=== PATIENT | male | born 1990 | race Caucasian/White ===

== ENCOUNTER 2017-10-07 21:13 | Emergency (ER) | payer OTHER ==
[2017-10-07 23:01] LABS: Urine Blood TRACE (NEG); Urine Glucose NEGATIVE (NEG); Urine Protein TRACE (NEG); Urine Specific Gravity 1.025 (1.005-1.030)
[2017-10-07] MEDS ORDERED: KETOROLAC 30 MG/ML INJ ONE (23:18)
--- NOTE | 2017-10-08 00:32 | EDPHYS ---
Physician Documentation [facility] Name: Robel Arauz Age: 27 yrs Sex: Male : 1990 Arrival Date: 10/07/2017 Time: 21:14 Bed 14 Private MD: Priscilla Frye ED Physician Ray Gutiérrez HPI: 10/08 03:43 This 27 yrs old Male presents to ER via Ambulatory with complaints of Low tw4 Back Pain. 03:43 The patient presents with pain that is acute. The patient presents with pain that is tw4 acute, with no known mechanism of injury. The symptoms are located in the left low back and right low back. The pain does not radiate. The problem was sustained from twisting. Onset: The symptoms/episode began/occurred today. Modifying factors: The patient symptoms are alleviated by rest, the patient symptoms are aggravated by movement. Associated signs and symptoms: The patient has no apparent associated signs or symptoms. The patient has not experienced similar symptoms in the past. Historical: - Allergies: 10/07 22:11 No Known Allergies; fc - Home Meds: 22:11 Cymbalta 60 mg oral cpDR 1 cap once daily [Active]; fc - PMHx: 22:11 Depression; fc - PSHx: 22:11 Appendectomy; fc - Immunization history:: Last tetanus immunization: unknown. - Social history:: Smoking status: Patient/guardian denies using tobacco, Patient/guardian denies using alcohol, street drugs. - Ebola Screening: : Patient negative for fever greater than or equal to 101.5 degrees Fahrenheit, and additional compatible Ebola Virus Disease symptoms Patient denies exposure to infectious person Patient denies travel to an Ebola-affected area in the 21 days before illness onset. ROS: 10/08 03:43 Constitutional: Negative for fever, chills, and weight loss, Cardiovascular: Negative tw4 for chest pain, palpitations, and edema, Respiratory: Negative for shortness of breath, cough, wheezing, and pleuritic chest pain, Abdomen/GI: Negative for abdominal pain, nausea, vomiting, diarrhea, and constipation. Back: Positive for pain with movement, Negative for injury or acute deformity, decreased range of motion, radiated pain. Exam: 03:43 Constitutional: This is a well developed, well nourished patient who is awake, alert, tw4 and in no acute distress. Chest/axilla: Normal chest wall appearance and motion. Nontender with no deformity. No lesions are appreciated. Cardiovascular: Regular rate and rhythm with a normal S1 and S2. No gallops, murmurs, or rubs. Normal PMI, no JVD. No pulse deficits. Respiratory: Lungs have equal breath sounds bilaterally, clear to auscultation and percussion. No rales, rhonchi or wheezes noted. No increased work of breathing, no retractions or nasal flaring. Abdomen/GI: Soft, non-tender, with normal bowel sounds. No distension or tympany. No guarding or rebound. No evidence of tenderness throughout. 03:43 Back: pain, that is mild, of the right mid back and right low back. Vital Signs: 10/07 22:11 BP 117 / 68; Pulse 56; Resp 18; Temp 98.1(O); Pulse Ox 98% on R/A; Weight 72.57 kg (R); fc Height 5 ft. 11 in. (180.34 cm) (R); Pain 2/10; 22:28 BP 112 / 76; Pulse 58; Resp 16; Pulse Ox 98% on R/A; Pain 2/10; aa1 10/08 00:37 BP 115 / 62; Pulse 60; Resp 16; Pulse Ox 99% on R/A; Pain 0/10; aa1 10/07 22:11 Body Mass Index 22.32 (72.57 kg, 180.34 cm) fc MDM: 10/07 22:32 Patient medically screened. tw4 10/08 03:43 Differential diagnosis: arthritis, strain. Data reviewed: vital signs, nurses notes. tw4 Counseling: I had a detailed discussion with the patient and/or guardian regarding: the historical points, exam findings, and any diagnostic results supporting the discharge/admit diagnosis. Counseling: I had a detailed discussion with the patient and/or guardian regarding: lab results, radiology results. Medication response: Toradol markedly relieved the patient's pain. Response to treatment: the patient's symptoms have markedly improved after treatment, and as a result, I will discharge patient. Special discussion: I discussed with the patient/guardian in detail that at this point there is no indication for admission to the hospital. It is understood, however, that if the symptoms persist or worsen the patient needs to return immediately for re-evaluation. 10/07 22:30 Order name: Urine Dipstick--Ancillary (enter results); Complete Time: 23:15 rg2 10/07 23:16 Order name: CT Stone Protocol tw4 Administered Medications: 10/07 23:15 CANCELLED (Physician Discretion): TORadol 30 mg IVP once tw4 23:20 Drug: TORadol 60 mg Route: IM; Site: right deltoid; aa1 10/08 00:37 Follow up: Response: No adverse reaction; Pain is decreased aa1 Disposition: 10/08/17 00:32 Discharged to Home. Impression: Low back pain. - Condition is Stable. - Discharge Instructions: Musculoskeletal Pain, Back Pain, Adult, [id number]. - Prescriptions for Ibuprofen 800 mg Oral Tablet - take 1 tablet by ORAL route every 8 hours As needed take with food; 30 tablet. Cyclobenzaprine 10 mg Oral Tablet - take 1 tablet by ORAL route every 8 hours As needed; 30 tablet. - Medication Reconciliation Form, Thank You Letter, Antibiotic Education, Prescription Opioid Use form. - Follow up: Priscilla Frye MD; When: As needed; Reason: Recheck today's complaints, Continuance of care, Re-evaluation by your physician. - Problem is new. - Symptoms have improved. Signatures: Dispatcher [employer] Deandra Zuniga RN RN aa1 Ana Petit RN RN Ray Gutiérrez MD MD tw4 Corrections: (The following items were deleted from the chart) 10/07 23:15 22:54 TORadol 30 mg IVP once ordered. tw4 tw4 10/08 00:38 00:32 10/08/2017 00:32 Discharged to Home. Impression: Low back pain. Condition is aa1 Stable. Forms are Medication Reconciliation Form, Thank You Letter, Antibiotic Education, Prescription Opioid Use. Follow up: Priscilla Frye; When: As needed; Reason: Recheck today's complaints, Continuance of care, Re-evaluation by your physician. Problem is new. Symptoms have improved. tw4
--- NOTE | 2017-10-08 00:32 | ER ---
Nurse's Notes [facility] Name: Robel Arauz Age: 27 yrs Sex: Male : 1990 Arrival Date: 10/07/2017 Time: 21:14 Bed 14 Private MD: Priscilla Frye Diagnosis: Low back pain Presentation: 10/07 22:08 Presenting complaint: Patient states: that he is having right lower back pain. States fc that he feels the area getting warmer. Started 2030 tonight. Denies any injury. Also denies any urinary problems. 2 days ago he had some blood in his stool but none today. Transition of care: patient was not received from another setting of care. Onset of symptoms was October 07, 2017 at 20:30. Risk Assessment: Do you want to hurt yourself or someone else? Patient reports no desire to harm self or others. Initial Sepsis Screen: Does the patient meet any 2 criteria? No. Patient's initial sepsis screen is negative. Does the patient have a suspected source of infection? No. Patient's initial sepsis screen is negative. Care prior to arrival: None. 22:08 Method Of Arrival: Ambulatory 22:08 Acuity: JANIS 3 Triage Assessment: 22:14 General: Appears comfortable, slender, Behavior is calm, cooperative, appropriate for age. Pain: Complains of pain in right low back Pain does not radiate. Pain currently is 2 out of 10 on a pain scale. at worst was 3 out of 10 on a pain scale. Quality of pain is described as aching, warm Pain began 3 hours ago. Is continuous, Aggravated by increased activity, repositioning, weight bearing. EENT: No deficits noted. Neuro: Level of Consciousness is awake, alert, obeys commands, Oriented to person, place, time, situation. Cardiovascular: No deficits noted. Respiratory: No deficits noted. GI: No deficits noted. : No deficits noted. Derm: Skin is pink, warm \T\ dry. Musculoskeletal: Circulation, motion, and sensation intact. Capillary refill < 3 seconds, Range of motion: intact in all extremities, Reports pain in right low back. Historical: - Allergies: 22:11 No Known Allergies; fc - Home Meds: 22:11 Cymbalta 60 mg oral cpDR 1 cap once daily [Active]; fc - PMHx: 22:11 Depression; fc - PSHx: 22:11 Appendectomy; fc - Immunization history:: Last tetanus immunization: unknown. - Social history:: Smoking status: Patient/guardian denies using tobacco, Patient/guardian denies using alcohol, street drugs. - Ebola Screening: : Patient negative for fever greater than or equal to 101.5 degrees Fahrenheit, and additional compatible Ebola Virus Disease symptoms Patient denies exposure to infectious person Patient denies travel to an Ebola-affected area in the 21 days before illness onset. Screenin:28 Abuse screen: Denies threats or abuse. Denies injuries from another. Nutritional aa1 screening: No deficits noted. Nutritional screening:. Tuberculosis screening: No symptoms or risk factors identified. Fall Risk None identified. Assessment: 22:28 General: Appears in no apparent distress. comfortable, Behavior is calm, cooperative, aa1 appropriate for age. Pain: Complains of pain in right low back Pain currently is 2 out of 10 on a pain scale. Neuro: Level of Consciousness is awake, alert, obeys commands, Oriented to person, place, time, situation, Moves all extremities. Full function Gait is steady. Respiratory: Airway is patent Respiratory effort is even, unlabored, Respiratory pattern is regular, symmetrical. GI: Abdomen is non-distended, Abd is soft and non tender X 4 quads. : Reports pain in right in lower back Denies burning with urination, inability to void. EENT: No signs and/or symptoms were reported regarding the EENT system. Derm: Skin is intact, is healthy with good turgor, Skin is pink, warm \T\ dry. Musculoskeletal: Circulation, motion, and sensation intact. Capillary refill < 3 seconds, Range of motion: intact in all extremities. 23:38 Reassessment: Patient appears in no apparent distress at this time. Patient and/or aa1 family updated on plan of care and expected duration. Pain level reassessed. Patient is alert, oriented x 3, equal unlabored respirations, skin warm/dry/pink. Awaiting CT scan. 10/08 00:37 Reassessment: Patient appears in no apparent distress at this time. Patient is alert, aa1 oriented x 3, equal unlabored respirations, skin warm/dry/pink. Discussed d/c \T\ f/u instructions with pt \T\ mother; denies questions or concerns at this time Patient denies pain at this time. Vital Signs: 10/07 22:11 BP 117 / 68; Pulse 56; Resp 18; Temp 98.1(O); Pulse Ox 98% on R/A; Weight 72.57 kg (R); fc Height 5 ft. 11 in. (180.34 cm) (R); Pain 2/10; 22:28 BP 112 / 76; Pulse 58; Resp 16; Pulse Ox 98% on R/A; Pain 2/10; aa1 10/08 00:37 BP 115 / 62; Pulse 60; Resp 16; Pulse Ox 99% on R/A; Pain 0/10; aa1 10/07 22:11 Body Mass Index 22.32 (72.57 kg, 180.34 cm) fc ED Course: 10/07 21:14 Patient arrived in ED. ds1 21:14 Priscilla Frye MD is Private Physician. ds1 22:10 Triage completed. fc 22:11 Arm band placed on left wrist. Patient placed in waiting room, Patient notified of wait fc time. 22:27 Deandra Byrnes, RN is Primary Nurse. aa1 22:28 Patient has correct armband on for positive identification. Bed in low position. Call aa1 light in reach. Pulse ox on. NIBP on. 22:32 Ray Gutiérrez MD is Attending Physician. tw4 23:[address] via wheelchair. kw1 23:53 CT completed. Patient tolerated procedure well. Patient moved back from CT. kw1 10/08 00:13 CT Stone Protocol In Process Unspecified. EDMS 00:31 Priscilla Frye MD is Referral Physician. tw4 00:37 No provider procedures requiring assistance completed. Patient did not have IV access aa1 during this emergency room visit. Administered Medications: 10/07 23:15 CANCELLED (Physician Discretion): TORadol 30 mg IVP once tw4 23:20 Drug: TORadol 60 mg Route: IM; Site: right deltoid; aa1 10/08 00:37 Follow up: Response: No adverse reaction; Pain is decreased aa1 Outcome: 00:32 Discharge ordered by . tw4 00:38 Patient left the ED. aa1 Signatures: Dispatcher [employer] EDHI Deandra Byrnes RN RN aa1 Ana Petit RN RN fc Scarlet Buckner ds1 Lisa Holt kw1 Ray Gutiérrez MD MD tw4
--- NOTE | 2017-10-08 09:15 | RAD REPORT ---
EXAM DESCRIPTION: CT - Stone Protocol - 10/08/2017 6:14 am CLINICAL HISTORY: Flank pain. COMPARISON: None. TECHNIQUE: Axial images were obtained without oral or IV contrast. Lack of contrast limits solid org an and vascular assessment. The [id number] spans the entirety of the system partially obscuring uppermost abdomen and lung bases. Coronal reformatted images were obtained and reviewed. All CT scans are performed using dose optimization technique as appropriate and may include automated exposure control or mA/KV adjustment according to patient size. FINDINGS: The lower lung jordan are clear. Imaged portions of the liver and spleen show no suspicious findings on non-contrast imaging. The panc reas and adrenal glands are normal. No pathologic lymphadenopathy in the abdomen or pelvis. No urinary tract stones or obstructive uropathy. No bowel obstruction, free air, free fluid or abscess. Appendectomy clips noted. No significant bony abnormality. IMPRESSION: No acute process identified.
== END 2017-10-08 00:38 | disposition home or self-care (01) ==
LOC: ER 21:13
DX: M54.5 Low back pain (principal); F32.9 Major depressive disorder, single episode, unspecified
CPT/HCPCS: 74176; 76377; 81003; 96372; 99284